=== PATIENT | female | born 1960 | race Caucasian/White ===

== ENCOUNTER 2018-01-15 07:05 | Observation (INO) | payer OTHER, SELFPAY ==
[2018-01-15] VITALS (10 sets, daily range): BP systolic 105–150; BP diastolic 59–89; PULSE 74–106; RESP 16–18; TEMP 36.4–37.7; O2SAT 94–100; BMI 28.0; BMI 29.8; BMI 29.9
--- NOTE | 2018-01-15 07:16 | CT_ITS ---
STUDY: CT ABDOMEN AND PELVIS WITH CONTRAST REASON FOR EXAM: Female, 57 years old. RADIATION DOSAGE (If Supplied By Facility): CTDIvol = ( 14.40 ) mGy, DLP = ( 801.22 ) mGycm TECHNIQUE: Transaxial images were obtained from the dome of the diaphragm to the symphysis pubis without oral contrast. 100ML ml of Isovue 300 contrast was administered. Sagittal and coronal images were reconstructed. Individualized dose optimization techniques were used for this CT. COMPARISON: None. FINDINGS: The visualized lung bases are unremarkable. The visualized portions of the heart are within normal limits. Normal liver. Normal gallbladder and extrahepatic biliary system. Normal spleen. Normal pancreas. Normal bilateral adrenal glands. Normal right kidney. Normal left kidney. Normal visualized stomach. Normal small intestine. Normal colon. There is a tubular, thick-walled appendix (>7mm), there is marked stranding of the fat adjacent to the appendix, consistent with acute appendicitis. Normal abdominal aorta. Normal inferior vena cava. Normal retroperitoneum. Normal urinary bladder. Normal osseous structures. CT/Abdomen/Pelvis WITH Contrast IMPRESSION: Acute appendicitis. Electronically Signed: Sagrario Sharma MD at 9:54 EDT Tel , Service support ,
--- NOTE | 2018-01-15 07:19 | ED.DCSUM_ITS ---
- ER Visit Summary Date of Service: 01/15/18 Chief Complaint: Abdominal pain History of Present Illness: The patient is a 57 F who developed lower abdominal pain last evening. Is rather generalized in location initially but now localized to the right lower quadrant. Patient denies nausea or vomiting but has no appetite. Her last p.o. intake was at 6 PM last evening. Patient has not noted a fever. Past medical history significant only for hypothyroidism. No prior abdominal surgeries. Physical Examination: Vital signs in triage include a blood pressure 150/89, temperature 99.3, heart rate 106, respiratory rate 16, pulse ox 99% on room air. Oral temperature at the time of my examination is 98.1. Head neck examination is unremarkable. Heart is regular rate and rhythm. Lung sounds are clear. Abdomen is soft with focal tenderness to the right lower quadrant. There is no guarding or rebound. Hypoactive bowel sounds are present. Test Results: CBC and chemistry studies are unremarkable. Urine is unremarkable. Emergency Department Course and Treatment: Patient declined pain or nausea medication. CT the abdomen pelvis with contrast was obtained it does reveal acute appendicitis. Dr. Mensah was contacted and evaluated the patient in the emergency room. Patient will be given a dose of Invanz, as she does document a history of allergies to amoxicillin with which she gets hives. Treatment Plan: [] Disposition: Admit Impression: Acute appendicitis This note was generated with [employer] dictation software. It may contain incorrect words, spelling, and punctuation that were not noted in review of the chart prior to signing ED Disposition - Plan for ED Patient: Chief Complaint: Abd Pain Referrals: Adrien Walsh MD [Primary Care Provider] -
[2018-01-15 07:44] LABS: Absolute Lymphocyte Count 1.22 X10^3/ul (0.83-4.51); Absolute Neutrophil Count 7.3 X10^3/uL (2.0-7.7); Basophil# 0.02 X10^3/uL; Basophil% 0.2 % (0-1); Eosinophil# 0.08 X10^3/uL; Eosinophils% 0.9 % (0-5); Hematocrit 42.8 % (37-47); Hemoglobin 14.2 g/dl (12.0-15.0); Lymphocyte # 1.22 X10^3/ul (4.0); Lymphocyte % 13.3 % (19-41); Mean Corp Hgb Conc 33.2 g/gl (32-36); Mean Corpuscular Hgb 28.6 pg (27.0-32.0); Mean Corpuscular Volume 86.1 fL (81-99); Mean Platelet Vol. 9.2 fl (6.2-12.0); Monocyte# 0.57 X10^3/uL; Monocyte% 6.2 % (0-10); Neutrophil # 7.27 X10^3/uL (2.7-7.7); Neutrophil % 79.3 % (47-70); Platelet Count 199 K/mm3 (150-450); RBC Distribution Width CV 13.3 % (11.6-14.6); RBC Distribution Width SD 42.1 fl (35.1-43.9); Red Blood Count 4.97 M/mm3 (4.2-5.4); White Blood Count 9.2 K/mm3 (4.4-11.0)
[2018-01-15 07:47] LABS: POSITIVE COUNT NO; POSITIVE DIFFERENTIAL NO; POSITIVE MORPHOLOGY NO
--- NOTE | 2018-01-15 07:51 | ED.RN ---
AT THIS TIME, PT DECLINES MEDICATION FOR PAIN AND NAUSEA. PT INFORMED TO NOTIFY STAFF IF SHE CHANGES HER MIND
[2018-01-15] MEDS: 0.9% Normal Saline 1,000 ML 150 ML IV (07:52)
[2018-01-15 07:56] LABS: Anion Gap 8 (5-15); BUN 19 mg/dL (7-18); BUN/Creat Ratio 23.3 RATIO (10-20); Calcium,Total 8.7 mg/dL (8.5-10.1); Chloride 107 mmol/L (98-107); Creatinine, Serum 0.82 mg/dL (0.55-1.02); EST Glomerular Filtration Rate 77 mL/min (>60); Est Glom Filt Rate - Afr Amer 94 mL/min (>60); Estimated Creatinine Clearance 66.94 ml/min; Glucose 99 mg/dL (74-106); Potassium 3.6 mmol/L (3.5-5.1); Sodium Level 142 mmol/L (136-145)
[2018-01-15 08:26] LABS: Bacteria 0 SEEN /hpf (None Seen); Mucous, Urine 0 SEEN /hpf (<or=2+); Red Blood Cells-Urine 0 SEEN /hpf (0-5); Squamous Epithelial Cells - UA 0 SEEN /hpf (5-10)
[2018-01-15 08:34] LABS: Color, Urine Yellow (Yellow); Glucose, Dipstick Normal (Normal); Ketone-Dipstick Negative (Negative); Leukocyte Esterase-Dipstick 100 /ul (Negative); Nitrite-Dipstick Negative (Negative); Occult Blood-Urine Negative /ul (Negative); Protein-Dipstick Negative (Negative); Specific Gravity, Urine 1.005 (1.002-1.030); Urine Bilirubin Dipstick Negative (Negative); Urine Clarity Clear (Clear); Urine Urobilinogen Normal (Normal)
--- NOTE | 2018-01-15 09:43 | HP.PCM_ITS ---
Problem List (1) Appendicitis Status: Acute History of Present Illness Date of Admission: 01/15/18 The patient is a 57 year old F with 1 day history of abdominal pain localizing to the right lower quadrant. She denies nausea, vomiting or fever. She has a normal WBC count but CT scan demonstrated appendicitis. She has a PCN allergy. She was given invanz Past Medical History Past Medical History (Chronic Problems): Chronic Problems (Last Reviewed 09/28/17 @ 15:04 by Pilar Mac) Atrophic vaginitis (Chronic) Allergies nitrofurantoin Adverse Reaction (Verified 01/15/18 07:07) HEADACHE amoxillcin Allergy (Mild, Uncoded 09/28/17 15:02) Hives Home Medications: Ambulatory Orders Medication Instructions Recorded levothyroxine 100 mcg tablet 100 mg PO DAILY 09/28/17 Cholecalciferol (Vitamin D3) 1,000 unit PO DAILY 01/15/18 [Vitamin D3] Lorazepam [Ativan] 0.5 mg PO PRN PRN 01/15/18 Multivitamin [Multiple Vitamins] 1 each PO DAILY 01/15/18 Surgical History: no surgical history Lives: Spouse/ Significant Other Smoking Status: Never smoker Alcohol: None Drugs: None Review of Systems Constitutional: Denies: Chills, Fever, Weight Change HEENT: Denies: Head Aches, Sinus Congestion, Sinus Drainage Cardiovascular: Denies: Chest Pain, Palpitations Respiratory: Denies: Cough, Shortness of breath at rest, Sputum production Gastrointestinal: Reports: Abdominal Pain. Denies: Nausea, Vomiting Genitourinary: Denies: Dysuria Musculoskeletal: Denies: Joint Pain, Joint Tenderness Skin: Denies: Rash, Wounds Neurological: Denies: Numbness, Tingling, Focal weakness Psychiatric: Denies: Anxiety, Depression, Homicidal Ideations, Suicidal Ideations Hematologic/ Lymphatic: Denies: Easy Bruising, Easy Bleeding VTE Information - Inpt Only VTE Present on Admission: No VTE Mechan Device Prophylaxis: SCD's Patient Problems: Active and Suspected Problems (Last Reviewed 09/28/17 @ 15:04 by Pilar Mac) Appendicitis (Acute) - Physical Exam General: Alert, Oriented x3, Cooperative HEENT: Atraumatic, PERRLA, EOMI, Normocephalic Neck: Supple, No JVD, Negative Carotid Bruits Lungs: Clear to auscultation, Normal air movement Cardiovascular: Regular rate, No murmurs Abdomen: Bowel Sounds Present, Soft, Tender - RLQ Extremities: No edema, Capillary Refill Less than 3 Seconds Skin: No rashes, No breakdown Musculoskeletal: No Tenderness to Palpation of Joints or Extremities Neurological: Cranial nerves II-XII grossly intact Psych/Mental Status: Normal Affect, Appropriate Vital Signs Temp Pulse Resp BP Pulse Ox 99.3 F H 106 H 16 150/89 H 99 01/15/18 07:05 01/15/18 07:05 01/15/18 07:05 01/15/18 07:05 01/15/18 07:05 Oxygen Delivery Method Room Air Weight: 74.117 kg Body Mass Index (BMI) 28.0 Laboratory Tests Past 24 Hrs 01/15/18 01/15/18 01/15/18 07:36 07:36 08:23 WBC 9.2 RBC 4.97 Hgb 14.2 Hct 42.8 MCV 86.1 MCH 28.6 MCHC 33.2 RDW 13.3 RDW Differential 42.1 Plt Count 199 MPV 9.2 Immature Gran % (Auto) 0.100 Neut % (Auto) 79.3 H Lymph % (Auto) 13.3 L [place] % (Auto) 6.2 Eos % (Auto) 0.9 Baso % (Auto) 0.2 Absolute Neuts (auto) 7.3 Absolute Lymphs (auto) 1.22 Total Counted Not Reportable Sodium 142 Potassium 3.6 Chloride 107 Carbon Dioxide 27.0 Anion Gap 8 BUN 19 H Creatinine 0.82 Estim Creat Clear Calc 66.94 Est GFR (MDRD) Af Amer 94 Est GFR (MDRD) Non-Af 77 BUN/Creatinine Ratio 23.3 H Glucose 99 Calcium 8.7 Urine Color Yellow Urine Clarity Clear Urine pH 7.0 Ur Specific [place] 1.005 Urine Protein Negative Urine Glucose (UA) Normal Urine Ketones Negative Urine Occult Blood Negative Urine Nitrite Negative Urine Bilirubin Negative Urine Urobilinogen Normal Ur Leukocyte Esterase 100 H Urine RBC Pending Urine WBC Pending Ur Squamous Epith Cells Pending Urine Bacteria Pending Urine Mucus Pending Assessment/Plan Active and Suspected Problems (Last Reviewed 09/28/17 @ 15:04 by Pilar Mac) Appendicitis (Acute) appendicitis I plan to perform a laparoscopic appendectomy. The patient understands the risks, benefits, possible complications. The patient consents to surgery. SCD's will be placed. Invanz was given.
--- NOTE | 2018-01-15 10:30 | APP_PTH ---
PATIENT: JULIO AMEZQUITA LOC: MS3 U#:[id number] AGE/SX: 57/F ROOM: [facility] RE01/15/[address]: Dr. Ciaran Jenkins MD : [id number] BED: 1 DIS: 01/16/2018 SPEC #: [id number] RECD: 01/17/18 10:36 STATUS: LORENZA REQ #: [id number] PALOMO: 01/15/18 10:[address]: Ciaran Jenkins DEPT: SURGICAL PATHOLOGY RECD BY: Ciaran Pearson ENTERED: 01/17/18 10:53 SP TYPE: APPENDIX OTHR DR: Dr. Adrien Walsh MD Tissues: Appendix, NOS Procedures: Surgery Specimen Level III HEADER OPERATION: Laparoscopic appendectomy PRE-OP DIAGNOSIS: Appendicitis TISSUE SUBMITTED: Appendix MICROSCOPIC DIAGNOSIS Appendix: Acute appendicitis and periappendicitis. SJ:ariella 01/18/18 MICROSCOPIC DESCRIPTION Slides are reviewed. GROSS DESCRIPTION Received is one container labeled with the patient's name and designated appendix. The specimen consists of a J-shaped appendix measuring 7 cm in length and up to 1.5 cm in average diameter. The attached periappendiceal adipose tissue measures up to 1 cm in width. The serosa is focally covered with chou, purulent exudate. No obvious perforation is identified. The lumen is pinpoint. No fecalith is identified. Qa Tester sections are submitted in one cassette. / SJ:ariella 01/17/18 TC:2 CPT: 78177
[2018-01-15] MEDS: Bupivacaine 0.25% 30 ML Vial (11:00)
--- NOTE | 2018-01-15 11:38 | OP.PCM_ITS ---
Problem List (1) Appendicitis Status: Acute Report of Operation Date of Procedure: 01/15/18 Pre-Operative Diagnosis: appendicitis Post-Operative Diagnosis: appendicitis Surgery/Procedure Performed:: laparoscopic appendectomy molding manager: None Type of Anesthesia:: General Anesthesiologist: Michael Meredith - ASA2E Specimen's removed: appendix Estimated Blood Loss (mL): 5 Fluids Replaced: 1300 Description of Procedure: The patient was brought to the operating suite. Sign in was performed verifying patient, site, procedure, position, and DVT prophylaxis with SCDs. Patient received 1 g Invanz for presumed appendicitis due to a penicillin allergy. Following induction of general anesthetic. The patient?s abdomen was prepped and draped in the usual fashion. Timeout was performed verifying patient, site , position. Local anesthetic was injected below the umbilicus. Incision made and dissection carried down to the umbilical root fascia. 2 stay sutures were placed. Incision made in the fascia, the peritoneum entered under direct visualization. A 10 mm Zabala trocar was inserted and secured with the stay sutures. Pneumoperitoneum to 15 mmHg was insufflated. Visual inspection revealed the base of the appendix was clean, but approximately 2 cm distal to the base the appendix. There is significant appendiceal inflammation with loops of small bowel adherent to the inflamed appendix and no obvious fecal perforation, but pus contained adjacent to the inflamed segment. 2 5mm ports were placed in the standard position. Harmonic scalpel was used to mobilize the appendix. The mesial appendix and its retroperitoneal attachments down to the base of the cecum. The mesoappendix was transected with a vascular load Endo LORNE stapler. The appendix was placed in an Endobag and removed through the umbilical port site. An 0 PDS [id number] suture was placed around the umbilical port site defect. Pneumoperitoneum was reestablished. The appendiceal area was checked for hemostasis. 5 ports were removed under direct visualization with no signs of bleeding. Pneumoperitoneum was released. The Zabala trocar was removed. The umbilical fascial suture was secured area did skin was closed with interrupted 4 -0 Monocryl subcuticular sutures. Steri-Strips and bandages were applied. The patient was brought to recovery room in stable condition.
[2018-01-15] MEDS: Morphine 4 MG/ML Syringe IV ×2 (14:46→17:11)
[2018-01-15] MEDS: Lactated Ringers 1,000 ML 100 ML IV (14:57)
[2018-01-15 15:08] LABS: White Blood Cells 5-10 SEEN /hpf (0-5)
[2018-01-15] MEDS: Ondansetron 4 MG/2 ML Vial IV (15:23)
[2018-01-16 02:00] VITALS: BP 122/61; PULSE 82; RESP 16; TEMP 36.9; O2SAT 100
[2018-01-16] MEDS: Lactated Ringers 1,000 ML 100 ML IV (02:04)
[2018-01-16] MEDS: Ibuprofen 400 MG Tablet PO ×2 (02:10→09:48)
[2018-01-16] MEDS: Levothyroxine 100 MCG Tablet PO (05:34)
--- NOTE | 2018-01-16 07:22 | PCM.PN.SRG ---
Patient Problems: Active and Suspected Problems (Last Reviewed 09/28/17 @ 15:04 by Pilar Mac) Appendicitis (Acute) - Physical Exam General: Alert, Oriented x3, Cooperative Lungs: Clear to auscultation, Normal air movement Cardiovascular: Regular rate, No murmurs Abdomen: Bowel Sounds Present, Soft, Tender - at incisions Vital Signs Temp Pulse Resp BP Pulse Ox 98.4 F 82 16 122/61 H 100 01/16/18 02:00 01/16/18 02:00 01/16/18 02:00 01/16/18 02:00 01/16/18 02:00 Oxygen Delivery Method Room Air Weight: 77.791 kg Body Mass Index (BMI) 29.8 Intake and Output for Last 24 Hours 01/14/18 01/15/18 01/16/18 23:59 23:59 23:59 Intake Total 200 / 200 1665 / 1665 Output Total 200 / 200 1600 / 1600 Balance 0 / 0 65 / 65 Laboratory Tests Past 24 Hrs 01/15/18 01/15/18 01/15/18 07:36 07:36 08:23 WBC 9.2 RBC 4.97 Hgb 14.2 Hct 42.8 MCV 86.1 MCH 28.6 MCHC 33.2 RDW 13.3 RDW Differential 42.1 Plt Count 199 MPV 9.2 Immature Gran % (Auto) 0.100 Neut % (Auto) 79.3 H Lymph % (Auto) 13.3 L [place] % (Auto) 6.2 Eos % (Auto) 0.9 Baso % (Auto) 0.2 Absolute Neuts (auto) 7.3 Absolute Lymphs (auto) 1.22 Total Counted Not Reportable Sodium 142 Potassium 3.6 Chloride 107 Carbon Dioxide 27.0 Anion Gap 8 BUN 19 H Creatinine 0.82 Estim Creat Clear Calc 66.94 Est GFR (MDRD) Af Amer 94 Est GFR (MDRD) Non-Af 77 BUN/Creatinine Ratio 23.3 H Glucose 99 Calcium 8.7 Urine Color Yellow Urine Clarity Clear Urine pH 7.0 Ur Specific [place] 1.005 Urine Protein Negative Urine Glucose (UA) Normal Urine Ketones Negative Urine Occult Blood Negative Urine Nitrite Negative Urine Bilirubin Negative Urine Urobilinogen Normal Ur Leukocyte Esterase 100 H Urine RBC 0 SEEN Urine WBC 5-10 SEEN Ur Squamous Epith Cells 0 SEEN Urine Bacteria 0 SEEN Urine Mucus 0 SEEN Medical Necessity - Tobacco Use Smoking Status: Never smoker Assessment/Plan Active and Suspected Problems (Last Reviewed 09/28/17 @ 15:04 by Pilar Mac) Appendicitis (Acute) appendicitis with inflammation POD # 1 s/p laparoscopic appendectomy. Vomited but felt it was due to morphine SCD's will be placed. Invanz continued. Afebrile - will D/c if tolerating liquids.
--- NOTE | 2018-01-16 07:29 | PCM.DC.APPY ---
Discharge Diet: Light diet - advance as tolerated Discharge Activity: May Not Drive - for 3-5 days or while taking narcotic pain meds. May shower in (days): 1 Suture Line Care: Avoid Pulling/Pushing, Avoid Pinching/Bending Additional Dressing/Incision Instructions:: Keep dressing clean and dry. Change or remove dressing in 2 days. Leave steri strips for 1 week. May protect with a gauze bandaid. Medications to take at Discharge levothyroxine 100 mcg tablet 100 mg PO DAILY 09/28/17 Cholecalciferol (Vitamin D3) [Vitamin D3] 1,000 unit PO DAILY 01/15/18 Lorazepam [Ativan] 0.5 mg PO PRN PRN 01/15/18 Multivitamin [Multiple Vitamins] 1 each PO DAILY 01/15/18 Ibuprofen [Motrin] 400 mg PO Q4H PRN PRN tablet 01/16/18 Oxycodone [Oxyir] 5 mg PO Q4H PRN PRN 7 Days #12 tab 01/16/18 Allergies/Adverse Reactions: Allergies amoxicillin Allergy (Mild, Verified 01/15/18 11:42) Hives nitrofurantoin Adverse Reaction (Verified 01/15/18 07:07) HEADACHE The following prescriptions were given: Oxycodone [Oxyir] 5 mg PO Q4H PRN PRN 7 Days #12 tab PRN Reason: Severe Pain (6-1010) Primary Care Physician: Adrien Walsh MD [Primary Care Provider] - Please Follow Up With: Ciaran Jenkins MD - [phone] When: Call to make a follow up appointment in 1 week.
[2018-01-16 08:00] VITALS: BP 123/66; PULSE 80; RESP 18; TEMP 36; O2SAT 97
--- NOTE | 2018-01-16 10:24 | PCM.DC.SUM ---
Discharge Date and Diagnosis - Problem List Patient Problems: Active and Suspected Problems (Last Reviewed 09/28/17 @ 15:04 by Pilar Mac) Appendicitis (Acute) Date of Admission: 01/15/18 Date of Discharge: 01/16/18 - Primary Discharge Diagnosis Active and Suspected Problems (Last Reviewed 09/28/17 @ 15:04 by Pilar Mac) Appendicitis (Acute) - Secondary Discharge Diagnosis Chronic Problems (Last Reviewed 09/28/17 @ 15:04 by Pilar Mac) Atrophic vaginitis (Chronic) Hospital Course and Treatment Operations: appendectomy Summary of Care Provided: The patient is a 57 year old F with a one-day history of central localizing right lower quadrant abdominal pain. She had no fever, chills. She had no elevated white blood cell count. CT scan demonstrated appendicitis. The patient was brought to the operating suite, underwent laparoscopic appendectomy. The patient did well and was able to be discharged home on postoperative day 1. Discharge Diet: Light diet - advance as tolerated Discharge Activity: May Not Drive - for 3-5 days or while taking narcotic pain meds. May shower in (days): 1 Suture Line Care: Avoid Pulling/Pushing, Avoid Pinching/Bending Additional Dressing/Incision Instructions:: Keep dressing clean and dry. Change or remove dressing in 2 days. Leave steri strips for 1 week. May protect with a gauze bandaid. Home Medications: Medications to take at Discharge levothyroxine 100 mcg tablet 100 mg PO DAILY 09/28/17 Cholecalciferol (Vitamin D3) [Vitamin D3] 1,000 unit PO DAILY 01/15/18 Lorazepam [Ativan] 0.5 mg PO PRN PRN 01/15/18 Multivitamin [Multiple Vitamins] 1 each PO DAILY 01/15/18 Ibuprofen [Motrin] 400 mg PO Q4H PRN PRN tablet 01/16/18 Oxycodone [Oxyir] 5 mg PO Q4H PRN PRN 7 Days #12 tab 01/16/18 Following Prescrptions Were Given to Patient: Oxycodone [Oxyir] 5 mg PO Q4H PRN PRN 7 Days #12 tab PRN Reason: Severe Pain (6-10/10) Primary Care Physician: Adrien Walsh MD [Primary Care Provider] - Please Follow Up With: Ciaran Jenkins MD - [phone] When: Call to make a follow up appointment in 1 week. Medical Necessity - Tobacco Use Smoking Status: Never smoker Meaningful Use Info Meaningful Use Diagnoses (Choose all that apply): None applicable
[2018-01-16 14:00] VITALS: BP 105/57; PULSE 95; RESP 18; TEMP 36.2; O2SAT 96
[2018-01-16 15:15] VITALS: BP 105/57; PULSE 95; RESP 18; TEMP 36.2; O2SAT 96
== END 2018-01-16 07:30 | disposition short-term general hospital (02) ==
LOC: ED 07:30 → SDC 10:28 → MS3 10:29
PROVIDERS: Admitting Provider Surgery; Emergency Provider Emergency Medicine; Family Provider Family Medicine; PCP Family Medicine; Visit Provider Surgery
PROC: 0DTJ4ZZ Resection of Appendix, Percutaneous Endoscopic Approach (ICD-10-PCS; CPT 44970; principal; 2018-01-15 10:30)
DX: K35.80 Unspecified acute appendicitis (principal); Z79.899 Other long term (current) drug therapy; E03.9 Hypothyroidism, unspecified
CPT/HCPCS: 44970; 74177; 80048; 81001; 85025; 88304; 96361; 96365; 96375; 96376; 99218; 99284; J7030; J7120; Q9967; A4216; G0378; J2405

== ENCOUNTER → 2018-09-19 14:29 | Outpatient (CLI) | payer OTHER, SELFPAY ==
[2018-09-13 14:51] VITALS: BMI 27.3
--- NOTE | 2018-09-19 14:32 | BI_ITS ---
MAMMOGRAPHY - BILATERAL SCREENING REASON FOR EXAM: Female, 58 years old. Routine annual screening examination. PERTINENT HISTORY: Mother with breast cancer. Remote left biopsies. TECHNIQUE: Digital bilateral breast kacey (3D mammographic acquisition) in the CC and MLO projections. 2-D mediolateral oblique (MLO) and craniocaudad (CC) views of both breasts were obtained. CAD: Full Field Digital Mammography with Computer Added Detection was performed. COMPARISON: Comparison is made with prior study dated September 17, 2017 and September 16, 2016. FINDINGS: Breast Composition: The breasts are heterogeneously dense, which may obscure small masses. There are no dominant masses or suspicious calcifications. Tissue clip markers are seen in the central retroareolar region of the left breast. These are unchanged. Stable benign-appearing left axillary lymph nodes. No other significant abnormalities are identified. There has been no significant change since the prior study. BI/SCREENING MAMM (CAD), BILAT IMPRESSION: Stable bilateral screening mammogram. Yearly follow-up mammogram recommended. (A) ASSESSMENT CATEGORY: BIRADS Category 2: Benign. A letter regarding these results will be sent to the patient by the facility within 30 days. Approximately 10% of breast cancers are not detected by mammography. A normal mammogram should not delay biopsy of a clinically suspicious abnormality. [id number] Electronically Signed: Edouard Hauser MD at 15:42 EST Tel [phone], Service support ,
== END ==
PROVIDERS: Family Provider Family Medicine; PCP Family Medicine; Visit Provider Nurse Practitioner Women's Health
DX: Z12.31 Encounter for screening mammogram for malignant neoplasm of breast (principal)
CPT/HCPCS: 77063; 77067

== ENCOUNTER → 2019-09-18 15:45 | Outpatient (CLI) | payer OTHER, SELFPAY ==
[2019-09-18 15:00] VITALS: BMI 27.3
[2019-09-21 11:56] LABS: HPV APTIMA, High Risk Negative (Negative)
== END ==
PROVIDERS: Family Provider Family Medicine; PCP Family Medicine; Referring Provider Nurse Practitioner Women's Health; Visit Provider Nurse Practitioner Women's Health
DX: Z12.4 Encounter for screening for malignant neoplasm of cervix (principal)
CPT/HCPCS: 87624; 88175; G0145

== ENCOUNTER → 2020-05-17 08:21 | Outpatient (CLI) | payer OTHER, SELFPAY ==
[2019-09-18 15:00] VITALS: BMI 27.3
--- NOTE | 2020-05-17 08:22 | BI_ITS ---
MAMMOGRAPHY - BILATERAL SCREENING REASON FOR EXAM: Female, 60 years old. Routine annual screening examination. PERTINENT HISTORY: Mother with breast cancer. Prior left needle biopsy. TECHNIQUE: Digital bilateral breast jorge (3D mammographic acquisition) in the CC and MLO projections. 2-D mediolateral oblique (MLO) and craniocaudad (CC) views of both breasts were obtained. CAD: Full Field Digital Mammography with Computer Added Detection was performed. COMPARISON: Comparison is made with prior study dated 09/19/2018 and 09/17/2017. FINDINGS: Breast Composition: The breasts are heterogeneously dense, which may obscure small masses. There are no dominant masses or suspicious calcifications. Once again, there are 2 tissue clip markers seen in the central retroareolar region of the left breast. No other significant abnormalities are identified. There has been no significant change since the prior study. BI/SCREEN MAMM (CAD) W/JORGE BILAT IMPRESSION: Stable bilateral screening mammogram. Yearly follow-up mammogram recommended. (A) ASSESSMENT CATEGORY: BIRADS Category 2: Benign. A letter regarding these results will be sent to the patient by the facility within 30 days. Approximately 10% of breast cancers are not detected by mammography. A normal mammogram should not delay biopsy of a clinically suspicious abnormality. [id number] Electronically Signed: Edouard Hauser, at 9:30 EDT , Service support ,
== END ==
PROVIDERS: PCP Family Medicine; Referring Provider Nurse Practitioner Women's Health; Visit Provider Nurse Practitioner Women's Health
DX: Z12.31 Encounter for screening mammogram for malignant neoplasm of breast (principal)
CPT/HCPCS: 77063; 77067

== ENCOUNTER 2020-06-21 04:36 | Emergency (ER) | payer OTHER, SELFPAY ==
[2019-09-18 15:00] VITALS: BMI 27.3
[2020-06-21 04:37] VITALS: BP 139/78; PULSE 90; RESP 18; TEMP 36.9; O2SAT 95; BMI 30.4
[2020-06-21 04:58] LABS: Absolute Lymphocyte Count 2.13 X10^3/uL (0.83-4.51); Absolute Neutrophil Count 4.7 X10^3/uL (2.0-7.7); Basophil# 0.07 X10^3/uL; Basophil% 0.9 % (0-1); Eosinophils% 2.6 % (0-5); Hematocrit 43.7 % (37-47); Hemoglobin 14.1 g/dL (12.0-15.0); Lymphocyte # 2.13 X10^3/ul (4.0); Mean Corp Hgb Conc 32.3 g/dL (32-36); Mean Corpuscular Hgb 28.4 pg (27.0-32.0); Mean Corpuscular Volume 87.9 fL (81-99); Mean Platelet Vol. 9.1 fl (6.2-12.0); Monocyte# 0.53 X10^3/uL; NRBC Flagged by Analyzer 0 % (0-5); Neutrophil # 4.67 X10^3/uL (2.7-7.7); Neutrophil % 61.2 % (47-70); Platelet Count 268 K/mm3 (150-450); RBC Distribution Width CV 12.4 % (11.6-14.6); Red Blood Count 4.97 M/mm3 (4.2-5.4); White Blood Count 7.6 K/mm3 (4.4-11.0)
--- NOTE | 2020-06-21 05:03 | ED.DCSUM_ITS ---
- ER Visit Summary Date of Service: 06/21/20 Chief Complaint: Right upper quadrant abdominal pain History of Present Illness: The patient is a 60 F presenting with right upper quadrant abdominal pain. Patient states this started at midnight. She states she ate spaghetti for dinner and then woke up later with pain in her right upper quadrant. She denies nausea, vomiting, diarrhea. Denies fever. Denies chest pain or shortness of breath. Denies other complaints. Physical Examination: Vitals are stable. Patient is afebrile. Alert no acute distress. HEENT exam is unremarkable. Neck is supple. Lungs are clear and equal bilaterally. Heart is regular rate and rhythm. Abdomen is soft right upper quadrant tenderness with no guarding or rebound Extremities are unremarkable. Skin is warm and dry. Remainder of exam is unremarkable. Emergency Department Course and Treatment: Patient declined pain medication. CBC, chemistries unremarkable. Liver lipase are normal. On reevaluation, patient is feeling improved. Right upper quadrant ultrasound was obtained and is pending. This will be checked out to the oncoming physician. Disposition: Pending Impression: Right upper quadrant abdominal pain This note was generated with [employer] dictation software. It may contain incorrect words, spelling, and punctuation that were not noted in review of the chart prior to signing ED Disposition - Plan for ED Patient: Referrals: Adrien Walsh MD [Primary Care Provider] -
[2020-06-21 05:10] LABS: AST(SGOT) 20 U/L (15-37); Alanine Aminotransfer ALT/SGPT 24 U/L (13-56); Alkaline Phosphatase 85 U/L (45-117); Anion Gap 4 (5-15); BUN 22 mg/dL (7-18); BUN/Creat Ratio 23.7 RATIO (10-20); Bilirubin, Direct 0.13 mg/dL (0.00-0.30); Calcium,Total 9.1 mg/dL (8.5-10.1); Chloride 107 mmol/L (98-107); Creatinine, Serum 0.93 mg/dL (0.55-1.02); EST Glomerular Filtration Rate 66 mL/min (>60); Est Glom Filt Rate - Afr Amer 80 mL/min (>60); Estimated Creatinine Clearance 56.94 ml/min; Globulin 4.1 g/dL (2.2-4.2); Glucose 108 mg/dL (74-106); Lipase 174 U/L (73-393); Potassium 3.6 mmol/L (3.5-5.1); Protein, Total 8.1 g/dL (6.4-8.2); Sodium Level 139 mmol/L (136-145)
--- NOTE | 2020-06-21 06:22 | US_ITS ---
STUDY: ABDOMINAL ULTRASOUND - RIGHT UPPER QUADRANT REASON FOR VISIT: Female, 60 years old RUQ PAIN X 1 DAY TECHNIQUE: Ultrasound evaluation of the right upper quadrant was performed with real-time and static chou-scale imaging. TECHNICAL QUALITY: Adequate. COMPARISON: CT January 15, 2018 FINDINGS: Liver: The liver measures 14.8 cm. There is increased echogenicity consistent with fatty infiltration. The bile ducts are within normal limits. There is hepatic color flow. The direction of portal flow is hepatopetal. There is no demonstrated mass lesion. Gallbladder: Normal distended gallbladder. The gallbladder wall measures 2 mm. There is a positive sonographic De Los Santos''s sign. There is no pericholecystic fluid. There is a solitary echogenic gallstone within the neck of the gallbladder. Common Bile Duct (C.B.D.): The common bile duct measures 9 mm. Pancreas: Normal size of the head, body and tail of the pancreas. There is normal echogenicity of the pancreas. There is no demonstrated pancreatic mass or cyst. Right Kidney: Normal size of the right kidney. The right kidney measures 9.8 cm. Normal renal cortex. The right cortex measures 1.3 cm. There is no demonstrated renal mass or cyst. There is no right hydronephrosis. US/Abdomen Limited IMPRESSION: Gallstone in the neck of the gallbladder. The patient was focally tender in the region of the gallbladder. Mild biliary dilatation. Electronically Signed: Justin Soliz MD at 8:07 EDT , Service support ,
[2020-06-21 06:39] VITALS: RESP 16
--- NOTE | 2020-06-21 07:16 | ED.DEP ---
ED Disposition - Plan for ED Patient: Instructions: ED Abdominal Pain Unkn Cause Fem Referrals: Adrien Walsh MD [Primary Care Provider] -
[2020-06-21 08:36] VITALS: BP 136/75; PULSE 78; RESP 18
== END 2020-06-21 08:37 | disposition home or self-care (01) ==
LOC: ED 05:11
PROVIDERS: Emergency Provider Emergency Medicine; PCP Family Medicine
DX: R10.11 Right upper quadrant pain (principal)
CPT/HCPCS: 76705; 80048; 80076; 83690; 85025; 99283

== ENCOUNTER 2020-07-29 07:30 | Day surgery (SDC) | payer OTHER, SELFPAY ==
[2020-07-23 11:43] VITALS: BMI 30.4
[2020-07-23 13:44] LABS: Absolute Lymphocyte Count 1.93 X10^3/uL (0.83-4.51); Absolute Neutrophil Count 4.2 X10^3/uL (2.0-7.7); Basophil# 0.07 X10^3/uL; Eosinophil# 0.11 X10^3/uL; Eosinophils% 1.6 % (0-5); Hematocrit 42.6 % (37-47); Hemoglobin 13.7 g/dL (12.0-15.0); Lymphocyte # 1.93 X10^3/ul (4.0); Lymphocyte % 28.5 % (19-41); Mean Corp Hgb Conc 32.2 g/dL (32-36); Mean Corpuscular Hgb 28.4 pg (27.0-32.0); Mean Corpuscular Volume 88.4 fL (81-99); Mean Platelet Vol. 10.2 fl (6.2-12.0); Monocyte# 0.49 X10^3/uL; Monocyte% 7.2 % (0-10); NRBC Flagged by Analyzer 0 % (0-5); Neutrophil # 4.16 X10^3/uL (2.7-7.7); Neutrophil % 61.4 % (47-70); Platelet Count 237 K/mm3 (150-450); RBC Distribution Width CV 12.4 % (11.6-14.6); RBC Distribution Width SD 40.5 fl (35.1-43.9); Red Blood Count 4.82 M/mm3 (4.2-5.4); White Blood Count 6.8 K/mm3 (4.4-11.0)
[2020-07-23 14:19] LABS: ALB/GLOB Ratio 1.1 RATIO (0.9-2.4); AST(SGOT) 26 U/L (15-37); Alanine Aminotransfer ALT/SGPT 32 U/L (13-56); Albumin, Serum 4.1 g/dL (3.2-5.0); Alkaline Phosphatase 75 U/L (45-117); Anion Gap 6 (5-15); BUN 14 mg/dL (7-18); BUN/Creat Ratio 14.9 RATIO (10-20); Calcium,Total 8.8 mg/dL (8.5-10.1); Chloride 105 mmol/L (98-107); Creatinine, Serum 0.94 mg/dL (0.55-1.02); EST Glomerular Filtration Rate 65 mL/min (>60); Est Glom Filt Rate - Afr Amer 79 mL/min (>60); Globulin 3.8 g/dL (2.2-4.2); Glucose 86 mg/dL (74-106); Potassium 3.7 mmol/L (3.5-5.1); Protein, Total 7.9 g/dL (6.4-8.2); Sodium Level 138 mmol/L (136-145)
[2020-07-23 15:17] LABS: Thyroid Stim Hormone (TSH) 1.12 uIU/mL (0.358-3.74)
--- NOTE | 2020-07-23 15:56 | EKG12_ITS ---
Test Reason : PRE OP Blood Pressure : / mmHG Vent. Rate : 074 BPM Atrial Rate : 074 BPM P-R Int : 148 ms QRS Dur : 080 ms QT Int : 414 ms P-R-T Axes : 068 062 035 degrees QTc Int : 459 ms Sinus rhythm with Premature atrial complexes Otherwise normal ECG Confirmed by MER BRADSHAW, KATH ([id number]), primer expeditor and drier NAGI MONSALVE ([id number]) on 07/24/2020 10:13:45 AM Referred By: Efrain Cooper Confirmed By:KATH DEL ANGEL MD
[2020-07-29] VITALS (10 sets, daily range): BP systolic 125–144; BP diastolic 68–89; PULSE 61–94; RESP 16–18; TEMP 36.1–37.4; O2SAT 92–100; BMI 28.3
--- NOTE | 2020-07-29 07:50 | PCM.HP.BLA ---
Problem List (1) Cholelithiasis with chronic cholecystitis Status: Chronic Qualifiers: History and Physical Date of Admission: 07/29/20 Intake Visit Reasons: GALLBLADDER Chief Complaint: ABD Pain/gallstones Director Of Quantitative Research Required: No Is patient in pain?: Yes (left side abdominal pain) Allergies amoxicillin Allergy (Mild, Verified 07/23/20 11:42) Hives nitrofurantoin Adverse Reaction (Verified 07/23/20 11:42) HEADACHE Medications Multivitamin [Multiple Vitamins] 1 ea PO DAILY 01/15/18 [History Confirmed 06/21/20] levothyroxine 88 mcg tablet 88 mcg PO DAILY 09/13/18 [History Confirmed 06/21/20] lorazepam 0.5 mg tablet 0.5 mg PO PRN PRN #20 tab 09/13/18 [Rx Confirmed 06/21/20] [facility] Medical History (Updated 07/23/20 @ 11:[address] Efrain Cooper MD) Cholelithiasis with chronic cholecystitis (Chronic) Abnormal Pap smear of cervix (Acute) Anxiety (Acute) Collagenous colitis (Acute) Thyroid disease (Acute) Surgical History (Updated 07/23/20 @ 11:45 by Varsha Brown) S/P breast biopsy (Acute) History of appendectomy (Acute) Family History Mother Breast cancer Social History (Updated 07/23/20 @ 11:[address] 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 She has a known gallstone in the neck of the gallbladder. She states in the past that she had a remote illness. But more recently June 21, 2020 she was seen in the [facility] emergency room because of a severe attack. Liver function test CBC was normal. Gallbladder ultrasound was obtained showing a gallstone in the neck of the gallbladder. It is of additional note that November 2019 she was very ill and suspected that she may have had COVID but she did not have any testing. She denies any current fever or cough. She has had no jaundice no change in stool. She did have some diarrhea in the past and also underwent a colonoscopy November 2019 and was diagnosed as having collagenous colitis. However she is not requiring any treatment. Since the diagnosis of her gallbladder disease she has been utilizing a low-fat diet with good success. She has not had COVID testing she has not had COVID antibody testing. Her gallbladder ultrasound demonstrated a common bile duct measuring 9 mm. Her past surgical history includes a previous laparoscopic appendectomy January 15, 2018. She states that she got a severe rash from the prep. 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 HPI HPI HPI: JULIO AMEZQUITA, is a 60 F who presents to the office today for ROS General General: No weight change, appetite, fatigue, colon cancer, breast cancer or weakness HEENT HEENT: No difficulty swallowing, eye injury, eye surgery, swollen glands or hoarseness Endo Endocrine: Yes thyroid disease; no diabetes mellitus, thyroid cancer, Hair loss, heat intolerance or cold intolerance Skin Skin: No rash or changing moles Breast Breast: No left breast lump, right breast lump, nipple discharge, breast pain, abnormal mammogram, abnormal US or breast enlargement Musc Musculoskeletal: No back problems, arthritis, rheumatoid arthritis, gout or joint pain Cardio Cardiovascular: No murmur, pacemaker, heart disease, atrial fibrillation, high blood pressure, heart attack, heart stent, palpitations, shortness of breat with exertion or chest pain Psych Psychiatric: No depression, anxiety or hearing voices Resp Respiratory: No shortness of breath, No sleep apnea, No cough, No COPD, No asthma, No emphysema, No wheezing Gastro Gastrointestinal: Yes abdominal pain, No nausea or vomiting, No diarrhea, No constipation, No blood in stool, No acid reflux, No hemorrhoids, No ulcers, Yes gallbladder problem, No black,tarry stools Manuel Hematologic: No blood thinners, No blood disorders, No bleeding, No anemia, No blood clots Neuro Neurologic: No system reviewed and no additional complaints, except as docu, No as per HPI, No abnormal walking, No abnormal hearing, No abnormal movements, No abnormal speech, No behavioral changes, No burning sensations, No confusion, No seizure-like activity, No unsteadiness, No dizziness, No localized weakness, No frequent falls, No headache(s), No lack of coordination, No loss of vision, No memory loss, No numbness, No other visual disturbances, No radiating pain, No restless legs, No sensory deficit, No fainting, No tingling, No tremor(s), No weakness, No other Exam Const General: cooperative, healthy appearing, comfortable, no acute distress Nutritional Appearance: average body habitus Orientation: alert, awake [facility] Head: normal to inspection Eyes General: appearance normal, both eyes and all related structures Chest Breast Palpation: No nipple discharge Resp Effort & Inspection: normal respiratory effort Auscultation: clear to auscultation bilaterally Cardio Rate: regular rate Rhythm: regular rhythm Heart Sounds: no murmurs GI Palpation: soft, no hepatosplenomegaly Auscultation: normal bowel sounds Musc Cervical Spine: normal cervical lordosis Skin General: no rashes or lesions noted Neuro Cognition: normal cognition Extrem General: no calf tenderness Psych Affect: normal affect Assessment & Plan Problems 1. Calculus of gallbladder with chronic cholecystitis without obstruction K80.10 Plan Findings are very much consistent with chronic cholecystitis cholelithiasis. I recommend laparoscopic cholecystectomy with selective angiography. The patient appears to have a topical iodine allergy. We will prophylax appropriately. Although she has had several bouts we will need to await out patient [facility] send out COVID testing. We will schedule her surgery for as soon as feasible. She has had an opportunity to ask and have questions answered. It is of note that she was very ill November 2019 feels that she may have had COVID at that time. She has not had any COVID antibody testing. She did have some diarrhea at that same episode and was diagnosed on colonoscopy with collagenous colitis. She is not having any current diarrheal symptoms. Copy: Dr. Adrien Cooper M.D., F.A.C.S. Orders Orders: Comprehensive Metabolic Profil Today K80.20 CBC W/Diff, Automated Today K80.20 Coding Level of Care Code Off vis,new,level 3 Diagnoses Calculus of gallbladder with chronic cholecystitis without obstruction K80.10 ??Cholelithiasis location: gallbladder ??Biliary obstruction: without biliary obstruction I have re-examined the patient. There are no clinical changes since date of exam. Procedure Criteria Procedure Type: Elective COVID Risk Discussion: The surgeon/proceduralist and patient have discussed in detail the risk of exposure to and/or potential harm posed by the COVID-19 virus with having a surgery/procedure at this time versus the risk of delaying the surgery/procedure. It is not possible to know either the risk of delaying the surgery or procedure or chance of getting an infection with perfect accuracy, but a joint decision was made between the patient and the surgeon/proceduralist to proceed at this time with the scheduled surgery/procedure as indicated on the consent form.
--- NOTE | 2020-07-29 07:51 | DCINST_ITS ---
Discharge Diet: Light diet - advance as tolerated - if you have questions about your diet instructions, please talk to you doctor. Discharge Activity: May Not Drive - for 3-5 days or while taking narcotic pain medicine. May shower in (days): 1 Lifting Restrictions: 10 pounds Call your doctor if your incision/area has: Continuous Slow Oozing, Sudden Increased Bleeding, Increased Pain/ Swelling, Increased Redness, Foul Smelling Discharge Call your doctor if you observe: Fever of 101 or Higher Suture Line Care: Avoid Pulling/Pushing, Avoid Pinching/Bending Additional Dressing/Incision Instructions:: Change or remove dressing in 4 days. Leave steri-strips in place for 1 week. Allergies/Adverse Reactions: Allergies amoxicillin Allergy (Mild, Verified 07/23/20 14:11) Hives chlorhexidine Allergy (Mild, Verified 07/23/20 14:11) Unknown iodine Allergy (Mild, Verified 07/23/20 14:11) Rash nitrofurantoin Adverse Reaction (Verified 07/23/20 14:11) HEADACHE Medications to take at Discharge Multivitamin [Multiple Vitamins] 1 ea PO DAILY 01/15/18 levothyroxine 88 mcg tablet 88 mcg PO DAILY 09/13/18 lorazepam 0.5 mg tablet 0.5 mg PO PRN PRN #20 tab 09/13/18 Ca/D3/Mag Ox/Zinc/Family And Consumer Sciences Teacher/Eric/Bor [Calcium +D & Minerals Chew Tab] 1 ea PO DAILY 07/23/20 Cholecalciferol (Vitamin D3) [Vitamin D3] 2,000 unit PO DAILY 07/23/20 Diphenhydramine HCl 50 mg PO DIRECTED PRN 07/23/20 L.acidoph,Paracasei, B.lactis [Probiotic] 1 ea PO DAILY 07/23/20 prednisone 50 mg tablet 50 mg PO DIRECTED PRN 07/23/20 Primary Care Physician: Adrien Walsh MD [Primary Care Provider] - Test Results: Test results from this visit will be discussed in further detail at your follow- up appointment, if applicable. Please Follow Up With: Efrain Cooper MD - [phone] When: Call for appt. May be phone, virtual, or onsite
[2020-07-29] MEDS: Lactated Ringers 1,000 ML 100 ML IV ×3 (08:08→13:16)
--- NOTE | 2020-07-29 09:30 | GALL_PTH ---
PATIENT: JULIO AMEZQUITA LOC: [facility] [place] U#:[id number] AGE/SX: 60/F ROOM: RE07/29/[address]: Dr. Efrain Cooper MD : 1960 BED: DIS: 07/29/2020 SPEC #: [id number] RECD: 07/29/20 10:57 STATUS: LORENZA REGeoffrey #: [id number] PALOMO: 07/29/20 09:[address]: Efrain Cooper DEPT: SURGICAL PATHOLOGY RECD BY: Estrada Sanchez ENTERED: 07/29/20 11:22 SP TYPE: MELANI ABRAMS DR: Dr. Adrien Walsh MD Tissues: Gallbladder, NOS Procedures: Surgery Specimen Level III HEADER OPERATION: Laparoscopic cholecystectomy with IOC PRE-OP DIAGNOSIS: Cholelithiasis with chronic cholecystitis TISSUE SUBMITTED: Gallbladder MICROSCOPIC DIAGNOSIS Gallbladder, cholecystectomy: Chronic cholecystitis and cholelithiasis. AM:ariella 07/30/20 MICROSCOPIC DESCRIPTION Slides are reviewed. GROSS DESCRIPTION Received is one container labeled with the patient's name and designated gallbladder. The specimen consists of a gallbladder measuring 8.5 x 3 x 3 cm. The external surface is pink-mccoy, smooth and glistening for the most part. Focally it is granular, hemorrhagic and contains cautery artifact. The gallbladder contains green-yellow mucoid bile and one ovoid, brownish stone measuring 2 x 1.5 x 1.5 cm. The mucosa is bile-stained and without any mass lesions. The gallbladder wall measures up to 0.3 cm in thickness. Transit Planning Director sections from the gallbladder and the cystic duct are submitted in one cassette. / SJ:ariella 07/29/20 TC:3 CPT: 40962
--- NOTE | 2020-07-29 09:30 | RAD_ITS ---
STUDY: INTRAOPERATIVE CHOLANGIOGRAM. REASON FOR EXAM: Female, 60 years old. Abd pain FLUOROSCOPY TIME (if supplied): ( 17 seconds ) minutes/seconds. A cine loop consisting of 114 images were submitted. TECHNIQUE: An intraoperative cholangiogram was performed by the surgeon. Imaging was submitted. COMPARISON: None. FINDINGS: There is dilatation of the common bile duct. No intraluminal filling defect is seen. There is free flow of contrast into the duodenum. RAD/Cholangiogram/ O R,Initial IMPRESSION: Dilatation of the common bile duct. No intraluminal filling defect is seen. Electronically Signed: Edouard Hauser, at 13:11 EDT , Service support ,
[2020-07-29] MEDS: Bupivacaine Mpf 0.5% 30 ML VIAL (10:00)
--- NOTE | 2020-07-29 10:30 | PCM.OPRPT ---
Problem List (1) Cholelithiasis with chronic cholecystitis Status: Chronic Qualifiers: Report of Operation Date of Procedure: 07/29/20 Pre-Operative Diagnosis: Chronic cholecystitis cholelithiasis Post-Operative Diagnosis: Same Surgery/Procedure Performed:: Laparoscopic cholecystectomy with cholangiograms Description of Surgical Findings:: Timeout and informed consent was obtained. 60-year-old female was taken to the operating placed on the table underwent general endotracheal intubation esthesia. Clindamycin 900 g given intravenously preoperatively. The abdomen was prepped with soap because of topical allergies. She had taken oral steroids as a iodine preventive for planned cholangiograms. 0.5% Marcaine was used as a local anesthetic. The patient previously had a vertical infraumbilical incision from a remote laparoscopic appendectomy. That skin scar was elliptically reexcised. Holding sutures of 0 Vicryl placed. Varies needle inserted. Saline drop test performed. The abdomen was insufflated with CO2 to a pressure of 10 mmHg pressure. 12 mm trocar inserted. 10 mm laparoscope inserted. No evidence of any trocar injuries. On direct visitation 5 mm ports were placed in the epigastric mid abdomen right upper quadrant. The gallbladder was distracted blunt dissection was instituted at the infundibulum until clearly the cystic duct and cystic artery was identified. There was an anterior to posterior branch of the cystic artery. These were successfully clipped with hemolock clips double clipping proximally. A hemolock clip was placed on the cystic duct stump and incision made the cystic duct and through a 14-gauge Angiocath a cholangiogram catheter was inserted. Fluoroscopically control cholangiograms were obtained demonstrating normal ductal anatomy and free flow into the small bowel. The cholangiogram catheter was removed 2 hemolock clips were placed on the cystic duct stump prior to transecting it. The cystic arteries were transected. The gallbladder is carefully and tediously dissected free from the liver bed. Complete hemostasis was intact. The gallbladder was placed in a retrieval bag. The right upper quadrant was irrigated and aspirated free of excess fluid. Hemostasis was intact. The abdomen was allowed to deflate of the CO2 through an antiviral valve. Trochars were removed. The gallbladder was exited the umbilicus. The fascia at the umbilicus was approximated with 2-0 Vicryl [id number] sutures. Skin edges approximate interrupted 4 Monocryl subdermal stitches. Steri-Strips Telfa OpSite dressings applied. Sponge and instrument and needle counts reported to the surgeon be correct. Specimens gallbladder. Drains none. Blood loss minimal. Efrain Cooper M.D., F.A.C.S. Type of Anesthesia:: General Anesthesiologist: Vinicius Del Angel
[2020-07-29] MEDS: Ketorolac 30 MG/ML Syringe IV (12:28)
== END 2020-07-29 15:53 | disposition home or self-care (01) ==
LOC: SDC 07:31 → AC 07:35
PROVIDERS: Anesthesiology; PCP Family Medicine; Referring Provider Surgery; Visit Provider Surgery
PROC: (CPT 47610; principal; 2020-07-29 09:15)
DX: K80.10 Calculus of gallbladder with chronic cholecystitis without obstruction (principal); F41.9 Anxiety disorder, unspecified; E06.9 Thyroiditis, unspecified; Z78.0 Asymptomatic menopausal state; Z87.19 Personal history of other diseases of the digestive system; Z79.899 Other long term (current) drug therapy
CPT/HCPCS: 00790; 47563; 36415; 74300; 76000; 80053; 84443; 85025; 87635; 88304; 93005; C9803; J7120; J2405; U0003

== ENCOUNTER → 2021-10-14 13:17 | Outpatient (CLI) | payer OTHER, SELFPAY ==
--- NOTE | 2021-10-14 13:19 | BI_ITS ---
MAMMOGRAPHY - BILATERAL SCREENING 3-D TOMOSYNTHESIS REASON FOR EXAM: Female, 61 years old. screening PERTINENT HISTORY: No significant family history. TECHNIQUE: 2-D mammograms and 3-D Tomosynthesis of the breast (s) were performed. CAD was performed. COMPARISON: 05/17/2020 FINDINGS: The breast composition is heterogeneously dense that can obscure small breast masses. Scattered benign calcifications are seen. No dense spiculated masses or suspicious microcalcifications are identified. No architectural distortion is identified. There is no skin thickening or retraction. There has been no significant change since the prior study. BI/SCRN MAMM (CAD)W/JORGE BILAT IMPRESSION: No mammographic signs of malignancy. Routine yearly mammograms recommended. ASSESSMENT CATEGORY: BIRADS Category 1: Negative. A letter regarding these results will be sent to the patient by the facility within 30 days. FOLLOW UP RECOMMENDATION: Yearly follow up mammogram recommended. (A) Approximately 10% of breast cancers are not detected by mammography. A normal mammogram should not delay biopsy of a clinically suspicious abnormality. Electronically Signed: Ciaran Zhao MD at 15:32 EST Tel , Service support ,
== END ==
PROVIDERS: PCP Family Medicine; Referring Provider Nurse Practitioner Women's Health; Visit Provider Nurse Practitioner Women's Health
DX: Z12.31 Encounter for screening mammogram for malignant neoplasm of breast (principal)
CPT/HCPCS: 77063; 77067

== ENCOUNTER → 2022-11-21 | Outpatient (CLI) | payer OTHER, SELFPAY ==
[2022-11-21 11:03] LABS: ALB/GLOB Ratio 0.9 RATIO (0.9-2.4); AST(SGOT) 14 U/L (15-37); Alanine Aminotransfer ALT/SGPT 22 U/L (13-56); Albumin, Serum 3.6 g/dL (3.2-5.0); Alkaline Phosphatase 71 U/L (45-117); Anion Gap 7 (5-15); BUN 20 mg/dL (7-18); BUN/Creat Ratio 24.3 RATIO (10-20); Calcium,Total 8.6 mg/dL (8.5-10.1); Chloride 107 mmol/L (98-107); Cholesterol 177 mg/dL (200); Creatinine, Serum 0.82 mg/dL (0.55-1.02); EST Glomerular Filtration Rate 75 mL/min (>60); Est Glom Filt Rate - Afr Amer 91 mL/min (>60); Follicle Stimulating Hormone 71.9 mIU/mL; Globulin 3.9 g/dL (2.2-4.2); Glucose 90 mg/dL (74-106); High Density Lipoprotein 68 mg/dL; Potassium 3.8 mmol/L (3.5-5.1); Protein, Total 7.5 g/dL (6.4-8.2); Sodium Level 143 mmol/L (136-145); Triglycerides 57 mg/dL; Very Low Density Lipoprotein 11 mg/dL (5-40)
[2022-11-23 08:28] LABS: Vitamin D,25 Hydroxy 36.1 ng/mL
== END | disposition home or self-care (01) ==
LOC: LAB 09:10
PROVIDERS: PCP Family Medicine
DX: E89.0 Postprocedural hypothyroidism (principal); E78.2 Mixed hyperlipidemia; E55.9 Vitamin D deficiency, unspecified
CPT/HCPCS: 36415; 80053; 80061; 82306; 83001

== ENCOUNTER → 2023-02-08 | Outpatient (CLI) | payer OTHER, SELFPAY ==
--- NOTE | 2023-02-08 14:44 | BI_ITS ---
MAMMOGRAPHY - BILATERAL SCREENING REASON FOR EXAM: Female, 62 years old. Routine annual screening examination. PERTINENT HISTORY: Mother with breast cancer. Remote left breast biopsies. TECHNIQUE: Digital bilateral breast jorge (3D mammographic acquisition) in the CC and MLO projections. 2-D mediolateral oblique (MLO) and craniocaudad (CC) views of both breasts were obtained. CAD: Full Field Digital Mammography with Computer Added Detection was performed. COMPARISON: Comparison is made with prior examination dated October 14, 2021 and May 17, 2020. FINDINGS: Breast Composition: The breasts are heterogeneously dense, which may obscure small masses. There are no dominant masses or suspicious calcifications. Once again, 2 tissue clip markers are seen in the retroareolar region of the left breast. No other significant abnormalities are identified. There has been no significant change since the prior study. BI/SCRN MAMM (CAD)W/JORGE BILAT IMPRESSION: Stable bilateral screening mammogram. Yearly follow-up mammogram recommended. (A) ASSESSMENT CATEGORY: BIRADS Category 2: Benign. A letter regarding these results will be sent to the patient by the facility within 30 days. Approximately 10% of breast cancers are not detected by mammography. A normal mammogram should not delay biopsy of a clinically suspicious abnormality. [id number] Electronically Signed: Edouard Hauser MD at 15:26 EDT ,
== END | disposition home or self-care (01) ==
LOC: OPBI 14:43
PROVIDERS: PCP Family Medicine; Referring Provider Nurse Practitioner Women's Health; Visit Provider Nurse Practitioner Women's Health
DX: Z12.31 Encounter for screening mammogram for malignant neoplasm of breast (principal); Z80.3 Family history of malignant neoplasm of breast
CPT/HCPCS: 77063; 77067

== ENCOUNTER → 2023-07-08 | Outpatient (CLI) | payer OTHER, SELFPAY | END | disposition home or self-care (01) | LOC: SL 20:06 | PROVIDERS: PCP Family Medicine; Referring Provider Nurse Practitioner Family; Visit Provider Nurse Practitioner Family | DX: G47.33 Obstructive sleep apnea (adult) (pediatric) (principal) | CPT/HCPCS: 95811 ==

== ENCOUNTER → 2024-01-13 | Outpatient (CLI) | payer OTHER, SELFPAY ==
[2024-01-20 13:08] LABS: HPV APTIMA, High Risk Negative (Negative)
== END | disposition home or self-care (01) ==
LOC: LABSPEC 15:52
PROVIDERS: PCP Family Medicine; Referring Provider Nurse Practitioner Women's Health; Visit Provider Nurse Practitioner Women's Health
DX: Z12.4 Encounter for screening for malignant neoplasm of cervix (principal)
CPT/HCPCS: 87624; 88175; G0145

== ENCOUNTER → 2024-02-10 | Outpatient (CLI) | payer OTHER, SELFPAY ==
--- NOTE | 2024-02-10 14:33 | BI_ITS ---
MAMMOGRAPHY - BILATERAL SCREENING REASON FOR EXAM: Female, 63 years old. Routine annual screening examination. PERTINENT HISTORY: Mother with breast cancer. History of prior left breast biopsies. TECHNIQUE: Digital bilateral breast jorge (3D mammographic acquisition) in the CC and MLO projections. 2-D mediolateral oblique (MLO) and craniocaudad (CC) views of both breasts were obtained. CAD: Full Field Digital Mammography with Computer Added Detection was performed. COMPARISON: Comparison is made with prior study dated February 08, 2023 and October 14, 2021. FINDINGS: Breast Composition: The breasts are heterogeneously dense, which may obscure small masses. There are no dominant masses or suspicious calcifications. Once again, 2 tissue markers are seen in the retroareolar region of the left breast. No other significant abnormalities are identified. There has been no significant change since the prior study. BI/SCRN MAMM (CAD)W/JORGE BILAT IMPRESSION: Stable bilateral screening mammogram. Yearly follow-up mammogram recommended. (A) ASSESSMENT CATEGORY: BIRADS Category 2: Benign. A letter regarding these results will be sent to the patient by the facility within 30 days. Approximately 10% of breast cancers are not detected by mammography. A normal mammogram should not delay biopsy of a clinically suspicious abnormality. [id number] Electronically Signed: Edouard Hauser MD at 15:29 EDT ,
== END | disposition home or self-care (01) ==
LOC: OPBI 14:33
PROVIDERS: PCP Family Medicine; Referring Provider Nurse Practitioner Women's Health; Visit Provider Nurse Practitioner Women's Health
DX: Z12.31 Encounter for screening mammogram for malignant neoplasm of breast (principal); Z80.3 Family history of malignant neoplasm of breast
CPT/HCPCS: 77063; 77067

== ENCOUNTER → 2024-12-12 | Outpatient (CLI) | payer OTHER, SELFPAY ==
--- NOTE | 2024-12-12 06:38 | MRI_ITS ---
PROCEDURE: MRI of the brain without and with intravenous contrast. REASON FOR EXAM: Visual field defect. Bilateral central scotoma TECHNIQUE: Multiplanar, multisequence MRI of the brain obtained without and with intravenous contrast. 17 cc Clariscan IV contrast was administered. COMPARISON: None available FINDINGS: Bones of the calvarium are intact. Included upper cervical spinal cord shows no specific abnormality. The sella and parasellar structures show no specific abnormality. Are clear. On dedicated images through the orbits, the globes, optic nerves, and extraocular muscles appear symmetric. No enhancing intra-ocular mass. The included extracranial soft tissues show no specific abnormality. The cerebellar tonsils are low lying, extending to the level of the foramen magnum. There are no areas of restricted diffusion. On postcontrast images, no areas of abnormal brain parenchymal enhancement. There are some minimal patchy areas of increased T2/FLAIR signal in the deep white matter structures of the cerebral hemispheres. MRI/Brain W/WO Contrast IMPRESSION: No acute intracranial abnormality or abnormal brain parenchymal enhancement. No focal MRI abnormality of the orbits. No mass effect on the optic chiasm. Minimal patchy hyperintensities in the periventricular white matter structures of the cerebral hemispheres, which may be on the basis of chronic small-vessel ischemic disease. Paranasal sinuses and mastoid air cells Reading Location: [facility]
== END | disposition home or self-care (01) ==
PROVIDERS: PCP Family Medicine; Referring Provider Ophthalmology; Visit Provider Ophthalmology
DX: H53.413 Scotoma involving central area, bilateral (principal)
CPT/HCPCS: 70553; A9575

== ENCOUNTER → 2025-02-12 | Outpatient (CLI) | payer OTHER, SELFPAY ==
--- NOTE | 2025-02-12 14:34 | BI_ITS ---
EXAM: SCRN MAMM (CAD)W/JORGE BILAT DATE: 02/12/2025 CLINICAL HISTORY: F, Age 64 y/o , SCREENING FOR BREAST CANCER BREAST CANCER RISK ASSESSMENT: Has not been calculated. TECHNIQUE: Bilateral screening digital breast tomosynthesis with 2D and 3D images. Computer aided detection. COMPARISON: Prior exam(s) dated 02/10/2024 and 02/08/2023. FINDINGS: TISSUE DENSITY: The breast tissue is composed of scattered area of fibroglandular density. Bilateral Breast Mammographic Findings: There are no suspicious masses, suspicious cluster of microcalcifications, architectural distortion or secondary signs of malignancy identified in either breast. 2 radiopaque clips are seen in the left breast. The biopsies were benign. The post biopsy sites are stable. BI/SCRN MAMM (CAD)W/JORGE BILAT IMPRESSION: OVERALL FINAL ASSESSMENT: BIRADS 2 BENIGN FINDING RECOMMENDATION: Routine annual follow-up in 1 Year A letter with findings and recommendations will be mailed to the patient. Reading Location: [id number]
== END | disposition home or self-care (01) ==
LOC: OPBI 14:33
PROVIDERS: PCP Family Medicine; Referring Provider Nurse Practitioner Women's Health; Visit Provider Nurse Practitioner Women's Health
DX: Z12.31 Encounter for screening mammogram for malignant neoplasm of breast (principal)
CPT/HCPCS: 77063; 77067